=== PATIENT | female | born 1970 | race Caucasian/White ===

== ENCOUNTER 2018-04-03 20:55 | Emergency (ER) | payer OTHER ==
[2018-04-03 21:05] VITALS: BP 134/83; PULSE 74; RESP 20; TEMP 98.6; O2SAT 98
[2018-04-03] MEDS ORDERED: Naproxen 550 mg Tab PO STA (21:09)
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
[2018-04-03] MEDS ORDERED: Naproxen 550 mg Tab PO ONE (21:18)
== END 2018-04-03 21:32 | disposition home or self-care (01) ==
LOC: C.ER 20:55
DX: S40.011D Contusion of right shoulder, subsequent encounter (principal); Y04.0XXD Assault by unarmed brawl or fight, subsequent encounter

== ENCOUNTER 2018-04-07 19:33 | Emergency (ER) | payer OTHER ==
[2018-04-07 19:41] VITALS: BP 127/81; PULSE 73; TEMP 98.4; O2SAT 99
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
[2018-04-07 20:15] VITALS: RESP 20
== END 2018-04-07 20:14 | disposition home or self-care (01) ==
LOC: C.ER 19:33
DX: S40.011D Contusion of right shoulder, subsequent encounter (principal); W22.8XXD Striking against or struck by other objects, subsequent encounter